=== PATIENT | female | born 1985 | race Caucasian/White ===

== ENCOUNTER → 2018-03-22 09:57 | Outpatient (CLI) | payer BC | END | disposition home or self-care (01) | LOC: D.MRI 03-18 11:30 | DX: M54.5 Low back pain (principal) ==

== ENCOUNTER → 2018-06-02 20:08 | Outpatient (CLI) | payer BC | END | disposition home or self-care (01) | LOC: D.MAMMO 09:00 | DX: N63.11 Unspecified lump in the right breast, upper outer quadrant (principal) ==

== ENCOUNTER 2018-07-06 08:40 | Emergency (ER) | payer BC ==
[~2018-07-06] VITALS: Ht 162.6 cm; Wt 100.0 kg
[2018-07-06 08:47] VITALS: Ht 162.6 cm; Wt 100.0 kg
[2018-07-06] MEDS ORDERED: SULFAMETHOXAZOL1 TA3 PO (08:50)
[2018-07-06] MEDS ORDERED: PREDNISONE10 MG PO (08:50)
[2018-07-06] MEDS ORDERED: CYCLOBENZAPRINE10 MG PO (09:53)
[2018-07-06] MEDS ORDERED: HYDROCODON-ACE1 EAC2 PO (09:53)
[2018-07-06 11:46] VITALS: BP 131/82
== END 2018-07-06 11:40 | disposition home or self-care (01) ==
LOC: D.ER 08:40
DX: S39.012A Strain of muscle, fascia and tendon of lower back, initial encounter (principal); X50.9XXA Other and unspecified overexertion or strenuous movements or postures, initial encounter; Y93.89 Activity, other specified; Y92.89 Other specified places as the place of occurrence of the external cause

== ENCOUNTER → 2019-05-25 13:21 | Outpatient (CLI) | payer BC ==
[2018-07-06 08:47] VITALS: BMI 37.8
--- NOTE | ~2019-05-25 | EC ---
PATIENT:SELVIN TRAN DATE OF SERVICE: 05/25/19 SEX: F MEDICAL RECORD: [id number] DATE OF : [birth year] [facility] AGE OF PATIENT: 33 ADMISSION DATE: 05/25/19 REFERRING PHYSICIAN: INTERPRETING PHYSICIAN: JULIA ESPINAL MD ECHOCARDIOGRAM REPORT ECHO CHARGES 4 ECHO COMPLETE Date: 05/25/19 CLINICAL DIAGNOSIS: CP/MURMUR/MEEHAN/EDEMA ECHOCARDIOGRAPHIC MEASUREMENTS (adult normal given) AC root (d.<3.7cm) 2.7 cm LV Septum d (<1.2 cm> 1.1 cm Valve Excursion 2.1 cm LV Septum (systole) 1.7 cm Left Atria (s.<4.0cm> 3.7 cm LVPW d(<1.2cm) 0.9 cm RV (d.<2.3cm) 2.6 cm LVPW (sytole) 1.7 cm LV diastole(<5.6CM) 5.3 cm MV E-F(>70mm/sec) cm LV systole 2.8 cm LVOT Diameter 1.9 cm MV exc.(>10mm) cm Est.ejection fraction (50-75%) % DOPPLER: LVIT cm/sec A 52.0 cm/sec E 88.0 cm/sec LA cm/sec RVSP 18.0 mmHg LVOT 95.0 cm/sec AOP1/2T m/s Asc. 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 Lucas TAPE# PACS Pericardial Effusion N DATE OF SERVICE: Adequate 2D, color flow, spectral Doppler, and M-mode. No LVH. LV internal dimension is normal. Wall motion is normal. EF is greater than or equal to 55%. Aortic valve is tricuspid. No evidence of stenosis by Doppler interrogation. Left atrium is normal at 3.7 cm. Mitral valve shows no prolapse. Trace MR. Right-sided chambers grossly normal. Trace TR. TRANSINT:[id number] Voice Confirmation ID: [id number] DOCUMENT ID: [id number] ECHOCARDIOGRAM REPORT [id number] SELVIN TRAN GREGORY A MD CC: [id number] DICTATION DATE: 05/29/19 1400 SENIOR GENETIC COUNSELOR: 05/29/192044 DEP CLI 05/25/19 [place] [id number] [place] [id number]
[~2019-05-25 13:21] MED LIST: CYCLOBENZAPRINE10 MG PO; HYDROCODON-ACE1 EAC2 PO; PREDNISONE10 MG PO; SULFAMETHOXAZOL1 TA3 PO
== END | disposition home or self-care (01) ==
LOC: D.HCCECHO 13:21
PROVIDERS: ATTEND Internal Medicine Interventional Cardiology
DX: R01.1 Cardiac murmur, unspecified (principal); R07.9 Chest pain, unspecified